=== PATIENT | female | born 1980 | race Caucasian/White ===

== ENCOUNTER 2017-01-09 10:35 | Emergency (ER) | payer OTHER ==
[~2017-01-09] VITALS: Ht 180.3 cm; Wt 59.1 kg
[2017-01-09 10:41] VITALS: BP 135/90
[2017-01-09] MEDS ORDERED: NAPROSYN500 MG PO (12:53)
== END 2017-01-09 13:04 | disposition home or self-care (01) ==
LOC: EME 10:35
DX: S40.022A Contusion of left upper arm, initial encounter (principal); M25.522 Pain in left elbow; W01.0XXA Fall on same level from slipping, tripping and stumbling without subsequent striking against object, initial encounter; Z72.0 Tobacco use
CPT/HCPCS: 73030; 73080; 99281; 99284